=== PATIENT | male | born 2000 | race African-American/Black ===

== ENCOUNTER 2019-03-16 02:36 | Emergency (ER) | payer MEDICAID ==
[~2019-03-16] VITALS: Ht 182.9 cm; Wt 76.2 kg
[2019-03-16] MEDS ORDERED: SODIUM CHLORIDE 0.9% 1,000 ML IV ONE (02:55)
[2019-03-16] MEDS ORDERED: ONDANSETRON HCL 4 MG/2 ML VIAL IV ONE (03:00)
[2019-03-16] MEDS ORDERED: HYDROmorphone HCL 2 MG/ML VL IV ONE ×2 (03:00→06:30)
[2019-03-16 04:09] LABS: Basophils # (auto) 0.2 uL; Basophils % (auto) 1.4 % (0.0-2.0); Eosinophils # (auto) 0.5 uL; Eosinophils % (auto) 3.3 % (0.0-7.0); Hematocrit 18.1 % (41.0-53.0); Lymphocytes % (auto) 20.1 % (10.0-50.0); Mean Corpuscular Hemoglobin 34.4 pg (28.0-32.0); Mean Corpuscular Hgb Conc. 36.5 g/dL (32.0-36.0); Mean Corpuscular Volume 94.2 fL (80.0-100.0); Monocytes # (auto) 1.6 uL; Monocytes % (auto) 10.8 % (0.0-12.0); Neutrophils # (auto) 9.7 uL; Neutrophils % (auto) 64.4 % (37.0-80.0); Nucleated Red Blood Cells % 1.2 %; Platelet Count (auto) 233 10^3/uL (140-450); Red Blood Cells 1.92 10^6/uL (4.5-5.90); White Blood Cell 15.1 10^3/uL (4.4-10.8)
[2019-03-16 04:11] LABS: Hemoglobin 6.6 g/dL (13.5-17.5); Red Cell Distribution Width 29.7 % (11.8-14.3)
[2019-03-16 04:22] LABS: Albumin 3.9 g/dL (3.4-5.0); Calcium 8.6 mg/dL (8.5-10.1); Potassium 3.8 mmol/L (3.5-5.1)
[2019-03-16 04:26] LABS: BUN/Creatinine Ratio 14.1
[2019-03-16 04:32] LABS: Bilirubin, Total 6.6 mg/dL (0.2-1.0); Total Protein 7.6 g/dL (6.4-8.2)
[2019-03-16 08:53] VITALS: BP 117/73
== END 2019-03-16 09:08 | disposition short-term general hospital (02) ==
LOC: EDBD 02:36 → ER 02:36
DX: D57.00 Hb-SS disease with crisis, unspecified (principal)
CPT/HCPCS: 36415; 71045; 80053; 85025; 85045; 93005; 96374; 96375; 96376; 99285; J1170; J2405; J7030

== ENCOUNTER 2019-04-14 17:57 | Emergency (ER) | payer MEDICAID ==
[~2019-04-14] VITALS: Ht 200.7 cm; Wt 83.0 kg
[2019-04-14 18:23] VITALS: BP 118/64
[2019-04-14] MEDS ORDERED: IBUPROFEN 600 MG TAB PO ONE (18:30)
[2019-04-15] MEDS ORDERED: FOLI1TAB6 PO (16:22)
[2019-04-16] MEDS ORDERED: HYDR-4798 PO (00:36)
[2019-04-16] MEDS ORDERED: GLUT5POW PO (00:36)
== END 2019-04-14 22:28 | disposition left against medical advice (07) ==
LOC: ER 18:03
DX: R52 Pain, unspecified (principal); Z53.21 Procedure and treatment not carried out due to patient leaving prior to being seen by health care provider

== ENCOUNTER 2022-08-06 19:10 | Inpatient (IN) | payer MEDICAID ==
[~2022-08-06] VITALS: Ht 203.2 cm; Wt 77.3 kg
[~2022-08-06 19:10] MED LIST: FOLI1TAB6 PO; GLUT5POW PO; HYDR-4798 PO
[2022-08-06] MEDS ORDERED: methylPREDNISolone SOD SUCC 125 MG/2 ML VL IV ONE (19:30)
[2022-08-06] MEDS ORDERED: IPRATROPIUM BROM 0.5 MG/2.5ML INH SOL HHN ONE (19:30)
[2022-08-06] MEDS ORDERED: ALBUTEROL SULF 2.5 MG/0.5ML(0.5%) NEB SOLN HHN ONE (19:30)
[2022-08-06] MEDS ORDERED: TEMAZEPAM 15 MG CAP PO PRN (21:30)
[2022-08-06] MEDS ORDERED: ACETAMINOPHEN 325 MG TAB PO PRN (21:30)
[2022-08-06] MEDS ORDERED: NITROGLYCERIN 0.4 MG SL TAB SL PRN (21:30)
[2022-08-06] MEDS ORDERED: MORPHINE SULFATE INJ 2 MG/ml SYRG IV PRN (21:30)
[2022-08-06] MEDS ORDERED: ONDANSETRON HCL 4 MG/2 ML VIAL IV PRN (21:30)
[2022-08-06] MEDS ORDERED: HYDROcodone-ACET 5/325MG TAB PO PRN (21:30)
[2022-08-06 21:37] VITALS: BP 130/68
[2022-08-06 22:47] LABS: Albumin 4.2 g/dL (3.4-5.0); Calcium 8.5 mg/dL (8.5-10.1); Potassium 3.5 mmol/L (3.5-5.1)
[2022-08-06 22:50] LABS: BUN/Creatinine Ratio 9.9; Bilirubin, Total 8.1 mg/dL (0.2-1.0); Total Protein 8.4 g/dL (6.4-8.2)
[2022-08-06 22:54] LABS: Lymphocytes % (auto) 7.2 % (10.0-50.0); Neutrophils % (auto) 88.3 % (37.0-80.0); White Blood Cell 17.8 10^3/uL (4.4-10.8)
[2022-08-06 22:55] LABS: Basophils # (auto) 0.2 10 ^3/uL (0-0.2); Basophils % (auto) 1.3 % (0.0-2.0); Eosinophils # (auto) 0 10 ^3/uL (0-0.8); Eosinophils % (auto) 0.2 % (0.0-7.0); Lymphocytes # (auto) 1.3 10 ^3/uL (0.4-5.4); Mean Corpuscular Hemoglobin 32.8 pg (28.0-32.0); Mean Corpuscular Hgb Conc. 36.3 g/dL (32.0-36.0); Mean Corpuscular Volume 90.3 fL (80.0-100.0); Monocytes # (auto) 0.5 10 ^3/uL (0-1.3); Neutrophils # (auto) 15.7 10 ^3/uL (1.6-8.6); Nucleated Red Blood Cells % 0.8 %; Red Blood Cells 2.11 10^6/uL (4.5-5.90)
[2022-08-06 22:56] LABS: Red Cell Distribution Width 27.4 % (11.8-14.3)
[2022-08-06 23:01] LABS: Hemoglobin 6.9 g/dL (13.5-17.5)
[2022-08-07] MEDS ORDERED: IPRATROPIUM BROM 0.5 MG/2.5ML INH SOL NEB SCH (06:00)
[2022-08-07] MEDS ORDERED: ALBUTEROL SULF 2.5 MG/0.5ML(0.5%) NEB SOLN NEB SCH (06:00)
[2022-08-07] MEDS ORDERED: FOLIC ACID 1 MG TAB PO SCH (10:00)
[2022-08-07] MEDS ORDERED: methylPREDNISolone SOD SUCC 125 MG/2 ML VL IV SCH (10:00)
[2022-08-07] MEDS ORDERED: hydroxyUREA 500 MG CAP PO SCH (10:00)
[2022-08-07] MEDS ORDERED: PANTOPRAZOLE 40 MG TAB PO SCH (10:00)
== END 2022-08-06 22:23 | disposition left against medical advice (07) | DRG 141 ==
LOC: ER 19:10 → EDBD 19:10 → TELE 21:34
PROVIDERS: ADMIT Nurse Practitioner; ATTEND Nurse Practitioner
DX: J45.902 Unspecified asthma with status asthmaticus (principal); J96.21 Acute and chronic respiratory failure with hypoxia; D57.1 Sickle-cell disease without crisis; Z53.29 Procedure and treatment not carried out because of patient's decision for other reasons; Z83.2 Family history of diseases of the blood and blood-forming organs and certain disorders involving the immune mechanism; Z94.9 Transplanted organ and tissue status, unspecified; Z20.822 Contact with and (suspected) exposure to COVID-19
CPT/HCPCS: 36415; 71045; 80053; 83605; 85025; 85045; 85379; 87040; 94640; 96374; G0378

== ENCOUNTER 2022-08-09 14:16 | Inpatient (IN) | payer MEDICAID ==
[~2022-08-09] VITALS: Ht 203.2 cm; Wt 75.0 kg
[2022-08-09] MEDS ORDERED: MAGNESIUM SULFATE 1GM/100ML 100 ML IV ONE (14:45)
[2022-08-09] MEDS ORDERED: DexAMETHasone SOD PHOS 10MG/1ML VIAL INJ IV ONE (14:45)
[2022-08-09] MEDS ORDERED: ALBUTEROL SULF 2.5 MG/0.5ML(0.5%) NEB SOLN NEB ONE (14:45)
[2022-08-09] MEDS ORDERED: IPRATROPIUM BROM 0.5 MG/2.5ML INH SOL NEB ONE (14:45)
[2022-08-09] MEDS ORDERED: CEFEPIME 1GM/ 50ML 50 ML IV ONE (16:00)
[2022-08-09] MEDS ORDERED: VANCOMYCIN 1GM/250ML 250 ML IV ONE (16:00)
[2022-08-09 16:33] LABS: Eosinophils # (auto) 0.3 10 ^3/uL (0-0.8); Mean Corpuscular Hemoglobin 33.4 pg (28.0-32.0)
[2022-08-09 16:35] LABS: Basophils # (auto) 0.1 10 ^3/uL (0-0.2); Basophils % (auto) 0.9 % (0.0-2.0); Eosinophils % (auto) 2.1 % (0.0-7.0); Hematocrit 17.6 % (41.0-53.0); Lymphocytes % (auto) 27.3 % (10.0-50.0); Mean Corpuscular Hgb Conc. 36.1 g/dL (32.0-36.0); Mean Corpuscular Volume 92.6 fL (80.0-100.0); Monocytes # (auto) 1.5 10 ^3/uL (0-1.3); Monocytes % (auto) 10.3 % (0.0-12.0); Neutrophils # (auto) 8.7 10 ^3/uL (1.6-8.6); Neutrophils % (auto) 59.4 % (37.0-80.0); Nucleated Red Blood Cells % 2.8 %; White Blood Cell 14.7 10^3/uL (4.4-10.8)
[2022-08-09 16:37] LABS: INR 1.13 (0.9-1.15); Partial Thromboplastin Time 30.2 sec (24.6-33.4)
[2022-08-09 16:38] LABS: Albumin 4.1 g/dL (3.4-5.0); BUN/Creatinine Ratio 12.6; Calcium 8.2 mg/dL (8.5-10.1)
[2022-08-09 16:41] LABS: Bilirubin, Total 11.5 mg/dL (0.2-1.0)
[2022-08-09 16:48] LABS: Hemoglobin 6.4 g/dL (13.5-17.5); Red Cell Distribution Width 28.4 % (11.8-14.3)
[2022-08-09] MEDS ORDERED: DOCUSATE SOD 100 MG CAP PO PRN (19:45)
[2022-08-09] MEDS ORDERED: SODIUM CHLORIDE 0.9% 1,000 ML IV SCH (19:45)
[2022-08-09] MEDS ORDERED: ACETAMINOPHEN 325 MG TAB PO PRN (19:45)
[2022-08-09] MEDS ORDERED: HYDROcodone-ACET 5/325MG TAB PO PRN (19:45)
[2022-08-09] MEDS ORDERED: PANTOPRAZOLE 40 MG/10 ML VIAL INJ IV ONE (19:45)
[2022-08-09] MEDS ORDERED: MORPHINE SULFATE INJ 2 MG/ml SYRG IV PRN (19:45)
[2022-08-09] MEDS ORDERED: ONDANSETRON HCL 4 MG/2 ML VIAL IV PRN (19:45)
[2022-08-09] MEDS ORDERED: diphenhdrAMINE HCL 50 MG/1 ML VL IV ONE (20:30)
[2022-08-09] MEDS ORDERED: IPRATROPIUM BROM 0.5 MG/2.5ML INH SOL NEB SCH (22:00)
[2022-08-09] MEDS ORDERED: CEFEPIME 1GM/ 50ML 50 ML IV SCH (22:00)
[2022-08-09] MEDS ORDERED: ALBUTEROL SULF 2.5 MG/0.5ML(0.5%) NEB SOLN NEB SCH (22:00)
[2022-08-10 02:27] VITALS: BP 123/59
[2022-08-10 03:20] VITALS: BP 123/51
[2022-08-10] MEDS ORDERED: levoFLOXacin 500MG 100 ML IV SCH (09:00)
[2022-08-10] MEDS ORDERED: PANTOPRAZOLE 40 MG/10 ML VIAL INJ IV SCH (10:00)
== END 2022-08-10 03:20 | disposition left against medical advice (07) | DRG 662 ==
LOC: ER 14:18 → UNDOADMIN 19:54 → TELE 19:54 → ICU CENTRL 23:58 → ER 08-10 03:28
PROVIDERS: ADMIT Nurse Practitioner Family; ATTEND Nurse Practitioner Family
DX: D57.01 Hb-SS disease with acute chest syndrome (principal); J96.01 Acute respiratory failure with hypoxia; J18.9 Pneumonia, unspecified organism; D72.829 Elevated white blood cell count, unspecified; D57.3 Sickle-cell trait; Z53.29 Procedure and treatment not carried out because of patient's decision for other reasons; J45.909 Unspecified asthma, uncomplicated; Z20.822 Contact with and (suspected) exposure to COVID-19; Z90.49 Acquired absence of other specified parts of digestive tract
CPT/HCPCS: 36415; 36600; 71045; 80053; 82805; 83605; 83880; 84484; 85025; 85045; 85610; 85730; 86850; 86870; 86900; 86901; 86922; 93005; 94640; 96365; 96366; 96368; 96375; 99291; C9113; G0378; J1100

== ENCOUNTER 2024-09-17 10:17 | Inpatient (IN) | payer MEDICAID ==
[2024-09-17] VITALS (7 sets, daily range): BP systolic 104–123; BP diastolic 50–62; PULSE 46–72; RESP 17–26; TEMP 98.4–98.6; O2SAT 94–99
[~2024-09-17] VITALS: Ht 203.2 cm; Wt 71.1 kg
[~2024-09-17 10:17] MED LIST changes: +FOLI-119 PO; -FOLI1TAB6 PO
--- NOTE | 2024-09-17 11:01 | ED.PDOC ---
SOB-HPI HPI Comments 23 y.o male with PMH Of sickle cell anemia and asthma, presents to the ED via EMS for a chief complaint of SOB associated with body pain and generalized weakness that started a couple days ago. Patient reports sudden onset of symptoms without recent contact illness exposure. EMS reports patient was saturating at 88% on room air on scene, was given one breathing treatment and placed on 2 liters of oxygen, increasing saturation the high 90's. Upon ED arriv al, EMS took patient off oxygen and he immediately dropped down to 88% again. Oxygen placed back on. Patient reports last sickle cell flare up was 2 years ago. No other symptoms or pain reported. He denies any tobacco or alcohol use. Marijuana use occasionally. Chief Complaint: Shortness of Breath Time Seen by MD: 10:36 Primary Care Provider: AME Reviewed notes: Nurses Notes, Refrigeration Manager Notes, Medications, Allergies Information Source: Patient, Emergency Med Personnel Mode of Arrival: EMS Severity: Moderate Timing: Days Duration: Since onset Context: At Rest PE Risk Factors: None History of: None Prehospital treatment: Breathing Tx, Oxygen (2 liters ) Associated Signs and Symptoms: Other Past Medical History PAST MEDICAL HISTORY: Anemia, Asthma Surgical History: Cholecystectomy Family History Family History: Unknown Social History Smoker: Non-Smoker Alcohol: Denies ETOH Use Drugs: Marijuana Lives In: Home Constitutional: reports: weakness; denies: chills, diaphoresis, fatigue, fever, malaise, sweats, others EENTM: denies: blurred vision, double vision, ear bleeding, ear discharge, ear drainage, ear pain, ear ringing, eye pain, eye redness, hearing loss, mouth pain, mouth swelling, nasal discharge, nose bleeding, nose congestion, nose pain, photophobia, tearing, throat pain, throat swelling, voice changes, others Respiratory: reports: SOB at rest, shortness of breath, SOB with excertion; denies: cough, hemoptysis, orthopnea, stridor, wheezing, others Cardiovascular: denies: chest pain, dizzy spells, diaphoresis, Dyspnea on exertion, edema, irregular heart beat, left arm pain, lightheadedness, palpitations, PND, syncope, others Gastrointestinal: denies: abdomen distended, abdominal pain, blood streaked bowels, constipated, diarrhea, dysphagia, difficulty swallowing, hematemesis, melena, nausea, poor appetite, poor fluid intake, rectal bleeding, rectal pain, vomiting, others Genitourinary: denies: burning, dysuria, flank pain, frequency, hematuria, incontinence, penile discharge, penile sore, pain, testicle pain, testicle swelling, urgency, others Neurological: denies: dizziness, fainting, headache, left sided numbness, left sided weakness, numbness, paresthesia, pre-existing deficit, right sided numbness, right sided weakness, seizure, speech problems, tingling, tremors, weakness, others Musculoskeletal: reports: muscle pain; denies: back pain, gout, joint pain, joint swelling, muscle stiffness, neck pain, others Integumetry: denies: bruises, change in color, change in hair/nails, dryness, laceration, lesions, lumps, rash, wounds, others Allergic/Immunocompromised: denies: Difficulty Healing, Frequent Infections, Hives, Itching, others Hematologic/Lymphatic: denies: anemia, blood clots, easy bleeding, easy bruising, swollen glands, others Endocrine: denies: excessive hunger, excessive sweating, excessive thirst, excessive urination, flushing, intolerance to cold, intolerance to heat, unexplained weight gain, unexplained weight loss, others Psychiatric: denies: anxiety, bipolar disorder, depression, hopeless, panic disorder, schizophrenia, sleepless, suicidal, others All Other Systems: Reviewed and Negative Physical Exam General Appearance: Thin HEENT: Pale Conjuntivae (L), Pale Conjuntivae (R), Pharynx Normal, TMs Normal Neck: Full Range of Motion, Non-Tender, Normal, Normal Inspection Respiratory: Chest Non-Tender, Decreased Breath Sounds, No Accessory Muscle Use, No Respiratory Distress, Wheezing Cardiovascular: No Edema, No JVD, No Murmur, No Gallop, Normal Peripheral Pulses, Regular Rate/Rhythm Breast Exam: Deferred Gastrointestinal: No Organomegaly, Non Tender, No Pulsatile Mass, Normal Bowel Sounds, Soft Genitalia: Deferred Pelvic: Deferred Rectal: Deferred Extremities: No calf tenderness, Normal capillary refill, No pedal edema Musculoskeletal : Apperance: Normal Neurologic: Alert, marine fisheries technician II-XII nml as Tested, No Motor Deficits, Normal Affect, Normal Mood, No Sensory Deficits Cerebellar Function: Normal Reflexes: Normal Skin: Dry, Normal Color, Warm Lymphatic: No Adenopathy Was a procedure done? Was a procedure done?: No Differential Dx Differential Diagnosis: Asthma, Bronchitis, Pneumonia, Respiratory Distress, URI Comments Sickle cell crisis X-Ray, Labs, Meds, VS Vital Signs Date Time Temp Pulse Resp B/P (MAP) Pulse Ox O2 Delivery O2 Flow Rate FiO2 09/17/24 11:30 62 26 130/59 09/17/24 10:54 98.4 62 26 126/36 (66) 94 98.4 09/17/24 10:54 62 26 94 Nasal Cannula* 3 32 09/17/24 10:53 98.7 72 18 108/63 (78) 100 Lab Test 09/17/24 11:11 Range/Units White Blood Count 13.6 H 4.4-10.8 10^3/uL Red Blood Count 1.99 L 4.5-5.90 10^6/uL Hemoglobin 6.6 *L 13.5-17.5 g/dL Hematocrit 17.9 L 41.0-53.0 % Mean Corpuscular Volume 89.9 80.0-100.0 fL Mean Corpuscular Hemoglobin 33.3 H 28.0-32.0 pg Mean Corpuscular Hemoglobin Concent 37.1 H 32.0-36.0 g/dL Red Cell Distribution Width 26.9 H 11.8-14.3 % Platelet Count 212 140-450 10^3/uL Mean Platelet Volume 8.0 6.9-10.8 fL Neutrophils (%) (Auto) 37.0-80.0 % Lymphocytes (%) (Auto) 10.0-50.0 % Monocytes (%) (Auto) 0.0-12.0 % Basophils (%) (Auto) 0.0-2.0 % Neutrophils # (Auto) 1.6-8.6 10 ^3/uL Lymphocytes # (Auto) 0.4-5.4 10 ^3/uL Monocytes # (Auto) 0-1.3 10 ^3/uL Differential Total Cells Counted 100.0 100 Neutrophils % (Manual) 72 37.0-80.0 Band Neutrophils % (Manual) 2 Lymphocytes % (Manual) 21 10.0-50.0 Monocytes % (Manual) 5 0-12 Eosinophils % (Manual) 0 0-7 Basophils % (Manual) 0 0.0-2.0 Metamyelocytes % (manual) 0 Myelocytes % (Manual) 0 Promyelocytes % (Manual) 0 Blast Cells % (Manual) 0 Reactive Lymphocytes 0 Platelet Estimate Adequate Anisocytosis (manual) Marked Sickle Cells Many Reticulocyte Count (auto) 11.64 H 0.5-1.5 % Sodium Level 138 136-145 mmol/L Potassium Level 4.3 3.5-5.1 mmol/L Chloride Level 109 H 98-107 mmol/L Carbon Dioxide Level 25 20-31 mmol/L Anion Gap 4 L 5-15 Blood Urea Nitrogen 13 9-23 mg/dL Creatinine 0.93 0.700-1.30 mg/dL Glomerular Filtration Rate Calc 117 >90 mL/min BUN/Creatinine Ratio 14.0 10.0-20.0 Serum Glucose 95 74-106 mg/dL Calcium Level 8.9 8.7-10.4 mg/dL Current Medications Medications (Trade) Dose Ordered Sig/Mirza Route Start Time Stop Time Status Last Admin Hydromorphone HCl (Dilaudid Injection) 1 mg ONCE ONCE IV 09/17/24 11:00 09/17/24 11:01 DC 09/17/24 11:30 Sodium Chloride 1,000 ml @ 1,000 mls/hr Q1H ONCE IV 09/17/24 11:00 09/17/24 11:59 DC 09/17/24 11:27 Ondansetron HCl (Zofran) 4 mg ONCE ONCE IV 09/17/24 11:00 09/17/24 11:01 DC 09/17/24 11:27 CHEST RADIOGRAPH IMPRESSION: Cardiomegaly Mild congestion The CBC shows an elevated white blood cell count of 13.6. The rest of the CBC shows significant anemia with a hemoglobin of 6.6 and hematocrit of 17.9 The chemistry panel is within normal limits The reticulocyte count is significantly elevated at 11.64 For the pain, the patient was given Dilaudid 1 mg IV push The patient was also given Zofran 4 mg IV push The patient was given a 1 L bolus of normal saline. At this time, the patient was being admitted with a diagnosis of severe anemia as well as exacerbation of sickle cell disease or sickle cell crisis We have discussed the findings with the patient and they are in agreement with the management. The patient was being admitted at this time. Images Reviewed?: Images reviewed and evaluated by me Time of 1ST Reevaluation: 10:57 Reevaluation 1ST: Unchanged Patient Education/Counseling: Diagnosis, Treatment, Prognosis Family Education/Counseling: No Family Present Departure 1 Departure Time of Disposition: 12:36 Impression: Primary Impression: Acute chest syndrome due to sickle cell crisis Additional Impressions: Asthma exacerbation Qualified Codes: J45.901 - Unspecified asthma with (acute) exacerbation Severe anemia Disposition: ADMITTED INPATIENT Admit to: Tele Condition: Fair Critical Care Note Critical Care Time?: Yes (45 min-critical care time only) Stability Stability form required: Yes Unstable for transfer: Telemetry monitoring (Telemetry monitoring required), ED Physician Assesment (Clinical assesment) I personally scribed for CRISTO RIVERA MD ([email or web address]) on 09/17/24 at 11:01. Electronically submitted by Sarita Stringer ([facility]). I personally scribed for CRISTO RIVERA MD ([email or web address]) on 09/17/24 at 11:36. Electronically submitted by Sarita Stringer ([facility]). CRISTO RIVERA MD Sep 17, 2024 11:01
[2024-09-17] MEDS: SODIUM CHLORIDE 0.9% 1,000 ML IV ONE ×2 (11:27→14:16)
[2024-09-17] MEDS: ONDANSETRON HCL 4 MG/2 ML VIAL IV ONE (11:27)
--- NOTE | 2024-09-17 11:27 | DVH ---
CHEST RADIOGRAPH Indication:sob Technique: Single frontal view of the chest was obtained COMPARISON: CHEST PORTABLE on DOS: 08/09/22, CXRP on DOS: 08/09/22, CHEST PORTABLE on DOS: 08/06/22 FINDINGS: Lines and Tubes: None Lungs: Pulmonary vascular congestion Pleura: No effusion. No pneumothorax. Cardiomediastinal contours: Cardiomegaly Bones: Unremarkable IMPRESSION: Cardiomegaly Mild congestion
[2024-09-17] MEDS: HYDROmorphone HCL 2 MG/ML VL/or syr IV ONE (11:30)
[2024-09-17 11:41] LABS: Chloride 109 mmol/L (98-107); Potassium 4.3 mmol/L (3.5-5.1); Sodium 138 mmol/L (136-145)
[2024-09-17 11:42] LABS: Anion Gap 4 (5-15); Calcium 8.9 mg/dL (8.7-10.4); Carbon Dioxide 25 mmol/L (20-31)
[2024-09-17 11:47] LABS: Glucose 95 mg/dL (74-106)
[2024-09-17 11:48] LABS: Blood Urea Nitrogen 13 mg/dL (9-23)
[2024-09-17 11:50] LABS: Hematocrit 17.9 % (41.0-53.0); Mean Corpuscular Hemoglobin 33.3 pg (28.0-32.0); Mean Corpuscular Volume 89.9 fL (80.0-100.0); Platelet Count (auto) 212 10^3/uL (140-450); Red Blood Cells 1.99 10^6/uL (4.5-5.90); White Blood Cell 13.6 10^3/uL (4.4-10.8)
[2024-09-17 11:52] LABS: Mean Corpuscular Hgb Conc. 37.1 g/dL (32.0-36.0); Red Cell Distribution Width 26.9 % (11.8-14.3)
[2024-09-17 11:54] LABS: Hemoglobin 6.6 g/dL (13.5-17.5)
[2024-09-17 11:56] LABS: Basophils % (manual) 0 (0.0-2.0); Blast Cells 0; Eosinophils % (manual) 0 (0-7); Metamyelocytes % 0; Myelocytes % 0; Promyelocytes % 0; Reactive Lymphocytes 0
[2024-09-17 12:28] LABS: Anisocytosis Marked; Band Neutrophils % (manual) 2; Lymphocytes % (manual) 21 (10.0-50.0); Monocytes % (manual) 5 (0-12); Platelet Estimate Adequate; Sickle Cells MANY
[2024-09-17] MEDS ORDERED: ACETAMINOPHEN 500 MG TAB PO PRN (13:45)
[2024-09-17] MEDS ORDERED: NITROGLYCERIN 0.4 MG SL TAB SL PRN (13:45)
[2024-09-17] MEDS ORDERED: HYDROcodone-ACET 5/325MG TAB PO PRN (13:45)
--- NOTE | 2024-09-17 14:32 | DVHHP2 ---
History of Present Illness Reason for Visit: Shortness of breaths History of Present Illness The patient was a 23-year-old male presenting to the emergency room with acute shortness of breath that has been worsening over the past two days. Patient also reports having generalized body aches, denies having any fevers or chills, but does report having green sputum production. The patient has a significant history of sickle cell disease, and states he has not been hospitalized for several years. During in my assessment, he was noted to be bradycardic with a heart rate in the 40s. The patient reports that he was very active with respect to physical activity, and states that he was had cardiac workup including an MRI of his heart and has not been told of any cardiac disease. Patient was found to have abnormal labs including a hemoglobin of 6.6 , white blood cell count of 13.6 and elevated reticulocyte count of 11.6. Heme/Onc: Sickle cell disease Past Surgical History: None Smoke: No ALCOHOL: none Drugs: None Lives: with Family Domestic Violence: Neg Review of Systems Constitutional: Yes: Weakness, Malaise Eyes: No: Pain, Vision change, Conjunctivae inflammation, Eyelid inflammation, Other, Redness ENT: No: Ear pain, Ear discharge, Nose pain, Nose discharge, Nose congestion, Mouth pain, Mouth swelling, Throat pain, Throat swelling, Other Respiratory: Cough, Shortness of breath, Sputum Cardiovascular: No: Chest Pain, Palpitations, Orthopnea, Paroxysmal Noc. Dyspnea, Edema, Lt Headedness, Other Gastrointestinal: No: Nausea, Vomiting, Abdominal Pain, Diarrhea, Constipation, Melena, Hematochezia, Other Genitourinary: No Dysuria, No Frequency, No Incontinence, No Hematuria, No Retention, No Other Musculoskeletal: No: other, neck pain, shoulder pain, arm pain, back pain, hand pain, leg pain, foot pain Skin: No: Rash, Lesions, Jaundice, Bruising, Other Neurological: No: Weakness, Numbness, Incoordination, Change in speech, Confusion, Seizures, Other Allergies: Coded Allergies: NO KNOWN ALLERGIES (Unverified , 11/03/15) Medications Current Medications Medications Dose Ordered Sig/Mirza Route Start Time Stop Time Status Last Admin Dose Admin Nitroglycerin 0.4 mg Q5MINP PRN SL 09/17/24 13:45 Morphine Sulfate 2 mg Q30M PRN IV 09/17/24 13:45 Ceftriaxone Sodium 50 ml @ 100 mls/hr DAILY@0900 IV 09/18/24 09:00 Azithromycin 250 ml @ 125 mls/hr DAILY IV 09/18/24 10:00 Acetaminophen 500 mg Q8HP PRN PO 09/17/24 13:45 Acetaminophen/ Hydrocodone Bitart 1 tab Q6HPRN PRN PO 09/17/24 13:45 Multivitamins 1 tab DAILY PO 09/18/24 10:00 Exam Vital Signs Vital Signs Date Time Temp Pulse Resp B/P (MAP) Pulse Ox O2 Delivery O2 Flow Rate FiO2 09/17/24 11:30 62 26 130/59 09/17/24 10:54 98.4 94 98.4 09/17/24 10:54 Nasal Cannula* 3 32 General Appearance: Alert, Oriented X3, Cooperative, mild distress HEENT: Atraumatic, PERRLA Respiratory: Clear to auscultation, Normal air movement Cardiovascular: Normal S1, Normal S2, Other (Sinus bradycardia) Abdominal: Normal bowel sounds Extremities: No clubbing, No cyanosis Neuro: Normal gait, Normal speech, Strength at 5/5 X4 ext Psych/Mental Status: Mental status NL, Mood NL Labs/Xrays Labs Test 09/17/24 11:11 Range/Units White Blood Count 13.6 H 4.4-10.8 10^3/uL Red Blood Count 1.99 L 4.5-5.90 10^6/uL Hemoglobin 6.6 *L 13.5-17.5 g/dL Hematocrit 17.9 L 41.0-53.0 % Mean Corpuscular Volume 89.9 80.0-100.0 fL Mean Corpuscular Hemoglobin 33.3 H 28.0-32.0 pg Mean Corpuscular Hemoglobin Concent 37.1 H 32.0-36.0 g/dL Red Cell Distribution Width 26.9 H 11.8-14.3 % Platelet Count 212 140-450 10^3/uL Mean Platelet Volume 8.0 6.9-10.8 fL Neutrophils (%) (Auto) 37.0-80.0 % Lymphocytes (%) (Auto) 10.0-50.0 % Monocytes (%) (Auto) 0.0-12.0 % Basophils (%) (Auto) 0.0-2.0 % Neutrophils # (Auto) 1.6-8.6 10 ^3/uL Lymphocytes # (Auto) 0.4-5.4 10 ^3/uL Monocytes # (Auto) 0-1.3 10 ^3/uL Differential Total Cells Counted 100.0 100 Neutrophils % (Manual) 72 37.0-80.0 Band Neutrophils % (Manual) 2 Lymphocytes % (Manual) 21 10.0-50.0 Monocytes % (Manual) 5 0-12 Eosinophils % (Manual) 0 0-7 Basophils % (Manual) 0 0.0-2.0 Metamyelocytes % (manual) 0 Myelocytes % (Manual) 0 Promyelocytes % (Manual) 0 Blast Cells % (Manual) 0 Reactive Lymphocytes 0 Platelet Estimate Adequate Anisocytosis (manual) Marked Sickle Cells Many Reticulocyte Count (auto) 11.64 H 0.5-1.5 % Sodium Level 138 136-145 mmol/L Potassium Level 4.3 3.5-5.1 mmol/L Chloride Level 109 H 98-107 mmol/L Carbon Dioxide Level 25 20-31 mmol/L Anion Gap 4 L 5-15 Blood Urea Nitrogen 13 9-23 mg/dL Creatinine 0.93 0.700-1.30 mg/dL Glomerular Filtration Rate Calc 117 >90 mL/min BUN/Creatinine Ratio 14.0 10.0-20.0 Serum Glucose 95 74-106 mg/dL Calcium Level 8.9 8.7-10.4 mg/dL Assessment/Plan Assessment/Plan Impression: -acute hypoxic respiratory failure -leukocytosis, rule out sepsis -sickle cell crisis -sinus bradycardia -anemia Plan: -admit to telemetry unit -O2 supplementation to keep saturation greater than 92% -checking BNP -PRBC transfusion -EKG -antibiotic therapy: Rocephin, azithromycin -check influenza and COVID-19 -pain management -repeat labs, chest x-ray in a.m. Total time spent with patient discussing and formulating plan of care: 35 minutes. This medical document was created using an electronic medical record system with [employer] dictation system. Although this document has been carefully reviewed, there may still be some phonetic and typographical errors. These areas are purely typographical due to imperfections of the software programs, and do not reflect any compromise in the patient's medical care. Plan discussed with: Patient, Other (RN) My Orders Orders - CHRISTIAN SHETTY NP Procedure Category Date Status Time Admit ADMIT 09/17/24 Transmitted 13:37 Nitroglycerin PHA 09/17/24 In Process Sublingual (Ntrostat 13:45 Morphine Sulfate PHA 09/17/24 In Process Injection 13:45 Stat Ekg For Chest ANDREI 09/17/24 In Process Pain 13:37 Notify Md Of Changes ANDREI 09/17/24 In Process From Base 13:37 Print And Pattern Designer For ANDREI 09/17/24 In Process 24 Hours 13:37 Emergency Dysrhythmia ANDREI 09/17/24 In Process Protocol 13:37 Rhythm Strips Once ANDREI 09/17/24 In Process Every Shift 13:37 Oxygen By Nasal RT 09/17/24 Transmitted Cannula 13:37 Complete Blood Count LAB 09/18/24 Verified 04:00 B-Type Natriuretic LAB 09/17/24 Logged Peptide 13:37 Chest Portable XY 09/18/24 Logged 04:00 Ceftriaxone 1gm/50ml PHA 09/18/24 In Process D5w (Rocephin) 09:00 Azithromycin 500mg/ PHA 09/18/24 In Process 250ml (Zithromax 50 10:00 Respiratory Culture JO 09/17/24 Logged W/ Gs 13:37 Acetaminophen Tablet PHA 09/17/24 In Process (Tylenol Tablet) 13:45 Hydrocodone-Acet PHA 09/17/24 In Process 5/325mg Tab ([place] 13:45 Rapid Influenza A&B LAB 09/17/24 Logged 13:37 Sequential ANDREI 09/17/24 In Process Compression Device 13:37 Dvh Inhouse Covid19 JO 09/17/24 Logged 13:37 Sodium Chloride 0.9% PHA 09/17/24 In Process 13:45 Regular Diet DIET 09/17/24 Transmitted Dinner D-Dimer LAB 09/17/24 Logged 13:37 Multiple Vitamin PHA 09/18/24 In Process Tablet (Mvi Tab) 10:00 Date of Service: Sep 17, 2024 Billing Provider: CHRISTIAN SHETTY NP Common Visit Codes: [id number] INP/OBS CARE (HIGH) CHRISTIAN SHETTY NP Sep 17, 2024 14:32
[2024-09-17] MEDS ORDERED: ONDANSETRON HCL 4 MG/2 ML VIAL IV PRN (14:45)
[2024-09-17 15:52] LABS: COVID19 ANTIGEN SOFIA FIA NEGATIVE (NEGATIVE); Rapid Influenza A Negative (Negative); Rapid Influenza B Negative (Negative)
[2024-09-17] MEDS: MORPHINE SULFATE INJ 2 MG/ml SYRG IV PRN (20:10)
[2024-09-18] VITALS (16 sets, daily range): BP systolic 106–124; BP diastolic 42–64; PULSE 50–91; RESP 16–98; TEMP 98.2–101; O2SAT 18–100
[2024-09-18] MEDS: SODIUM CHLORIDE 0.9% 1,000 ML IV SCH
--- NOTE | 2024-09-18 05:45 | DVH ---
CHEST RADIOGRAPH Indication:pna Technique: Single frontal view of the chest was obtained COMPARISON: XY CHEST PORTABLE on DOS: 09/17/24, CHEST PORTABLE on DOS: 08/09/22, CXRP on DOS: 08/09/22 FINDINGS: Lines and Tubes: None Lungs: Multifocal airspace disease. Pleura: No effusion. No pneumothorax. Cardiomediastinal contours: Cardiomegaly Bones: Unremarkable IMPRESSION: Multifocal airspace disease.
[2024-09-18] MEDS: ACETAMINOPHEN 500 MG TAB PO PRN (06:07)
[2024-09-18 08:06] LABS: Basophils # (auto) 0.2 10 ^3/uL (0-0.2); Basophils % (auto) 1.2 % (0.0-2.0); Eosinophils # (auto) 0 10 ^3/uL (0-0.8); Eosinophils % (auto) 0.1 % (0.0-7.0); Hematocrit 15.3 % (41.0-53.0); Lymphocytes % (auto) 12.3 % (10.0-50.0); Mean Corpuscular Hemoglobin 32.7 pg (28.0-32.0); Mean Corpuscular Hgb Conc. 36.3 g/dL (32.0-36.0); Mean Corpuscular Volume 90.3 fL (80.0-100.0); Monocytes # (auto) 1.5 10 ^3/uL (0-1.3); Monocytes % (auto) 9.2 % (0.0-12.0); Neutrophils # (auto) 12.6 10 ^3/uL (1.6-8.6); Neutrophils % (auto) 77.2 % (37.0-80.0); Nucleated Red Blood Cells % 0.6 %; Platelet Count (auto) 207 10^3/uL (140-450); Red Cell Distribution Width 26.7 % (11.8-14.3); White Blood Cell 16.3 10^3/uL (4.4-10.8)
[2024-09-18 08:07] LABS: Hemoglobin 5.6 g/dL (13.5-17.5)
[2024-09-18] MEDS: IPRATROPIUM BROM 0.5 MG/2.5ML INH SOL NEB PRN (08:50)
[2024-09-18] MEDS: ALBUTEROL SULF 2.5 MG/0.5ML(0.5%) NEB SOLN NEB PRN (08:50)
[2024-09-18] MEDS: cefTRIAXone 1GM/50ML D5W 50 ML IV SCH (09:03)
[2024-09-18] MEDS: MULTIPLE VITAMIN TAB PO SCH (09:04)
[2024-09-18] MEDS: AZITHROMYCIN 500MG/ 250ML 250 ML IV SCH (10:36)
[2024-09-18 10:39] LABS: Anisocytosis Moderate; Platelet Estimate Adequate
[2024-09-18 10:40] LABS: Sickle Cells MANY
--- NOTE | 2024-09-18 16:18 | DVHPN2 ---
Subjective I am assuming the care of the patient from today onwards who was under the care of hospitalist team. Patient's denies any generalized body pain today. Reviewed: Care Plan Changes from previous H/P or p: No Changes Eyes: No Pain, No Vision change, No Conjunctivae inflammation, No Eyelid inflammation, No Other, No Redness ENT: No Ear pain, No Ear discharge, No Nose pain, No Nose discharge, No Nose congestion, No Mouth pain, No Mouth swelling, No Throat pain, No Throat swelling, No Other Cardiovascular: No Chest Pain, No Palpitations, No Orthopnea, No Paroxysmal Noc. Dyspnea, No Edema, No Lt Headedness, No Other Respiratory: Cough, Shortness of breath, Sputum Gastrointestinal: No Nausea, No Vomiting, No Abdominal Pain, No Diarrhea, No Constipation, No Melena, No Hematochezia, No Other Genitourinary: No Dysuria, No Frequency, No Incontinence, No Hematuria, No Retention, No Other Musculoskeletal: No other, No neck pain, No shoulder pain, No arm pain, No back pain, No hand pain, No leg pain, No foot pain Skin: No Rash, No Lesions, No Jaundice, No Bruising, No Other Objective Vitals Vital Signs Date Time Temp Pulse Resp B/P (MAP) Pulse Ox O2 Delivery O2 Flow Rate FiO2 09/18/24 13:52 99.8 69 18 118/53 99.8 09/18/24 11:52 93 09/18/24 10:00 Nasal Cannula* 2 28 Intake/Output Intake and Output 09/18/24 07:00 Intake Total 2810 ml Output Total 900 ml Balance 1910 ml Intake Oral 1060 ml IV Total 1750 ml Output Urine Total 900 ml # Voids 1 Exam HEENT pupils are reactive Neck is supple CV is S1-S2 regular rate and rhythm Respiratory diminished breath sounds bilateral lung bases GI positive bowel sound Extremity no edema 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 no motor deficit Medications Current Medications Medications Dose Ordered Sig/Mirza Route Start Time Stop Time Status Last Admin Dose Admin Nitroglycerin 0.4 mg Q5MINP PRN SL 09/17/24 13:45 Morphine Sulfate 2 mg Q30M PRN IV 09/17/24 13:45 Ceftriaxone Sodium 50 ml @ 100 mls/hr DAILY@0900 IV 09/18/24 09:00 09/18/24 09:03 100 MLS/HR Azithromycin 250 ml @ 125 mls/hr DAILY IV 09/18/24 10:00 09/18/24 10:36 125 MLS/HR Acetaminophen/ Hydrocodone Bitart 1 tab Q6HPRN PRN PO 09/17/24 13:45 Multivitamins 1 tab DAILY PO 09/18/24 10:00 09/18/24 09:04 1 TAB Morphine Sulfate 2 mg Q4HPRN PRN IV 09/17/24 14:45 09/18/24 12:19 2 MG Acetaminophen 500 mg Q8HP PRN PO 09/17/24 14:45 09/18/24 06:07 500 MG Ondansetron HCl 4 mg Q6HP PRN IV 09/17/24 14:45 Albuterol 2.5 mg Q4HPRN PRN NEB 09/17/24 14:45 09/18/24 08:50 2.5 MG Ipratropium [place] 0.5 mg Q4HPRN PRN NEB 09/17/24 14:45 09/18/24 08:50 0.5 MG Sodium Chloride 1,000 ml @ 120 mls/hr Q8H20M IV 09/18/24 15:00 Laboratory Results Laboratory Tests 09/17/24 11:11 09/18/24 05:14 Assessment/Plan Assessment/Plan 73-year-old male with a known history of sickle cell disease initially presented to the hospital with a generalized body pain shortness breath found to have 1. Acute hypoxic respiratory failure secondary to sickle cell crisis 2. Acute sickle cell crisis 3. Multifocal airspace disease could be secondary to sickle cell disease, empirical antibiotics for now 4. Acute anemia -transfuse 2 units of packed RBC, O2 supplementation, hydration, pain management Plan discussed with: Patient My Orders Orders - DOMENICO BOWERS MD Procedure Category Date Status Time Sodium Chloride 0.9% PHA 09/18/24 In Process 15:00 Date of Service: Sep 18, 2024 Billing Provider: DOMENICO BOWERS MD Common Visit Codes: [id number] INP/OBS CARE(HIGH) DOMENICO BOWERS MD Sep 18, 2024 16:18
[2024-09-18] MEDS: MORPHINE SULFATE INJ 2 MG/ml SYRG IV PRN (21:48)
[2024-09-19] VITALS (17 sets, daily range): BP systolic 115–130; BP diastolic 53–66; PULSE 64–97; RESP 17–19; TEMP 97.9–103; O2SAT 90–100
[2024-09-19 10:34] LABS: Hematocrit 16.4 % (41.0-53.0)
[2024-09-19 10:44] LABS: Hemoglobin 6.2 g/dL (13.5-17.5)
--- NOTE | 2024-09-19 15:37 | DVHPN2 ---
Subjective BCC diabetes controlled, patient will be given 1 unit of packed RBC. Reviewed: Care Plan Changes from previous H/P or p: No Changes Eyes: No Pain, No Vision change, No Conjunctivae inflammation, No Eyelid inflammation, No Other, No Redness ENT: No Ear pain, No Ear discharge, No Nose pain, No Nose discharge, No Nose congestion, No Mouth pain, No Mouth swelling, No Throat pain, No Throat swelling, No Other Cardiovascular: No Chest Pain, No Palpitations, No Orthopnea, No Paroxysmal Noc. Dyspnea, No Edema, No Lt Headedness, No Other Respiratory: Cough, Shortness of breath, Sputum Gastrointestinal: No Nausea, No Vomiting, No Abdominal Pain, No Diarrhea, No Constipation, No Melena, No Hematochezia, No Other Genitourinary: No Dysuria, No Frequency, No Incontinence, No Hematuria, No Retention, No Other Musculoskeletal: No other, No neck pain, No shoulder pain, No arm pain, No back pain, No hand pain, No leg pain, No foot pain Skin: No Rash, No Lesions, No Jaundice, No Bruising, No Other Objective Vitals Vital Signs Date Time Temp Pulse Resp B/P (MAP) Pulse Ox O2 Delivery O2 Flow Rate FiO2 09/19/24 15:10 98.3 76 18 125/59 98.3 09/19/24 11:54 93 09/19/24 10:38 Room Air 0.0 09/19/24 10:38 21 Intake/Output Intake and Output 09/19/24 07:00 Intake Total 2800 ml Output Total 3952 ml Balance -1152 ml Intake Oral 2200 ml IV Total 300 ml Blood Product 300 ml Output Urine Total 3952 ml Exam HEENT pupils are reactive Neck is supple CV is S1-S2 regular rate and rhythm Respiratory diminished breath sounds bilateral lung bases GI positive bowel sound Extremity no edema 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 no motor deficit Medications Current Medications Medications Dose Ordered Sig/Mirza Route Start Time Stop Time Status Last Admin Dose Admin Nitroglycerin 0.4 mg Q5MINP PRN SL 09/17/24 13:45 Morphine Sulfate 2 mg Q30M PRN IV 09/17/24 13:45 09/19/24 03:04 2 MG Ceftriaxone Sodium 50 ml @ 100 mls/hr DAILY@0900 IV 09/18/24 09:00 09/19/24 07:55 100 MLS/HR Azithromycin 250 ml @ 125 mls/hr DAILY IV 09/18/24 10:00 09/19/24 09:37 125 MLS/HR Acetaminophen/ Hydrocodone Bitart 1 tab Q6HPRN PRN PO 09/17/24 13:45 Multivitamins 1 tab DAILY PO 09/18/24 10:00 09/19/24 09:38 1 TAB Morphine Sulfate 2 mg Q4HPRN PRN IV 09/17/24 14:45 09/19/24 12:35 2 MG Acetaminophen 500 mg Q8HP PRN PO 09/17/24 14:45 09/18/24 20:24 500 MG Ondansetron HCl 4 mg Q6HP PRN IV 09/17/24 14:45 Albuterol 2.5 mg Q4HPRN PRN NEB 09/17/24 14:45 09/19/24 10:38 2.5 MG Ipratropium [place] 0.5 mg Q4HPRN PRN NEB 09/17/24 14:45 09/19/24 10:38 0.5 MG Sodium Chloride 1,000 ml @ 120 mls/hr Q8H20M IV 09/18/24 15:00 09/19/24 08:04 120 MLS/HR Laboratory Results Laboratory Tests 09/17/24 11:11 09/18/24 05:14 09/19/24 10:15 Assessment/Plan Assessment/Plan 73-year-old male with a known history of sickle cell disease initially presented to the hospital with a generalized body pain shortness breath found to have 1. Acute hypoxic respiratory failure secondary to sickle cell crisis 2. Acute sickle cell crisis 3. Multifocal airspace disease could be secondary to sickle cell disease, empirical antibiotics for now 4. Acute anemia Transfuse one more unit of packed RBC, O2 supplementation, hydration, pain management. -discharge plan. Plan discussed with: Patient Date of Service: Sep 19, 2024 Billing Provider: DOMENICO BOWERS MD Common Visit Codes: [id number] INP/OBS CARE(MOD), [id number] INP/OBS CARE(HIGH) DOMENICO BOWERS MD Sep 19, 2024 15:37
[2024-09-20] VITALS (9 sets, daily range): BP systolic 109–128; BP diastolic 52–67; PULSE 75–91; RESP 17–18; TEMP 98.7–100.6; O2SAT 91–96
[2024-09-20 05:25] LABS: Hematocrit 20.5 % (41.0-53.0); Hemoglobin 7.1 g/dL (13.5-17.5)
--- NOTE | 2024-09-20 10:02 | DVHPN2 ---
Subjective Patient reports that his generalized ill feeling has improved. Continues to have cough and some shortness of breath. Reviewed: Care Plan, H&P Changes from previous H/P or p: Changes Eyes: No Pain, No Vision change, No Conjunctivae inflammation, No Eyelid inflammation, No Other, No Redness ENT: No Ear pain, No Ear discharge, No Nose pain, No Nose discharge, No Nose congestion, No Mouth pain, No Mouth swelling, No Throat pain, No Throat swelling, No Other Cardiovascular: No Chest Pain, No Palpitations, No Orthopnea, No Paroxysmal Noc. Dyspnea, No Edema, No Lt Headedness, No Other Respiratory: Cough, Shortness of breath, Sputum Gastrointestinal: No Nausea, No Vomiting, No Abdominal Pain, No Diarrhea, No Constipation, No Melena, No Hematochezia, No Other Genitourinary: No Dysuria, No Frequency, No Incontinence, No Hematuria, No Retention, No Other Musculoskeletal: No other, No neck pain, No shoulder pain, No arm pain, No back pain, No hand pain, No leg pain, No foot pain Skin: No Rash, No Lesions, No Jaundice, No Bruising, No Other Objective Vitals Vital Signs Date Time Temp Pulse Resp B/P (MAP) Pulse Ox O2 Delivery O2 Flow Rate FiO2 09/20/24 09:00 99.7 91 17 109/56 (73) 92 99.7 09/20/24 08:35 Nasal Cannula 3.0 09/20/24 08:35 38 38 Intake/Output Intake and Output 09/20/24 07:00 Intake Total 4300 ml Output Total 3700 ml Balance 600 ml Intake Oral 2400 ml IV Total 1300 ml Blood Product 300 ml Other 300 ml Output Urine Total 3700 ml General Appearance: Alert, Oriented X3, Cooperative, No acute distress HEENT: Atraumatic, PERRLA Lungs: Normal air movement, Other (Bilateral rhonchi) Cardiovascular: Normal S1, Normal S2 Genitourinary: No Apparent Abnormalities Musculoskeletal: Normal sensory function, Normal motor function Neuro: Normal gait, Normal speech Psych/Mental Status: Mental status NL, Mood NL Medications Current Medications Medications Dose Ordered Sig/Mirza Route Start Time Stop Time Status Last Admin Dose Admin Nitroglycerin 0.4 mg Q5MINP PRN SL 09/17/24 13:45 Morphine Sulfate 2 mg Q30M PRN IV 09/17/24 13:45 09/19/24 03:04 2 MG Ceftriaxone Sodium 50 ml @ 100 mls/hr DAILY@0900 IV 09/18/24 09:00 09/20/24 08:43 100 MLS/HR Azithromycin 250 ml @ 125 mls/hr DAILY IV 09/18/24 10:00 09/19/24 09:37 125 MLS/HR Acetaminophen/ Hydrocodone Bitart 1 tab Q6HPRN PRN PO 09/17/24 13:45 Multivitamins 1 tab DAILY PO 09/18/24 10:00 09/19/24 09:38 1 TAB Morphine Sulfate 2 mg Q4HPRN PRN IV 09/17/24 14:45 09/20/24 08:44 2 MG Acetaminophen 500 mg Q8HP PRN PO 09/17/24 14:45 09/20/24 03:14 500 MG Ondansetron HCl 4 mg Q6HP PRN IV 09/17/24 14:45 Albuterol 2.5 mg Q4HPRN PRN NEB 09/17/24 14:45 09/19/24 17:21 2.5 MG Ipratropium [place] 0.5 mg Q4HPRN PRN NEB 09/17/24 14:45 09/19/24 17:21 0.5 MG Sodium Chloride 1,000 ml @ 120 mls/hr Q8H20M IV 09/18/24 15:00 09/20/24 00:29 120 MLS/HR Laboratory Results Laboratory Tests 09/17/24 11:11 09/18/24 05:14 09/20/24 04:39 Labs and/or images reviewed: Labs reviewed by me, Image(s) reviewed by me Assessment/Plan Assessment/Plan Impression: -acute hypoxic respiratory failure -leukocytosis, rule out sepsis -sickle cell crisis -sinus bradycardia -anemia Plan: -no events overnight. Continues to be febrile. O2 saturation noted to be 89% on room air. D-dimer was noted to be 3.7 -CT angiogram of the chest rule out PE. Patient agreeable. Patient denies having any contrast or shellfish allergies. -O2 supplementation to keep saturation greater than 92% -EKG -antibiotic therapy: Rocephin, azithromycin -pain management -folic acid with B vitamins, MVI -transfer to Medical/Surgical floor Total time spent with patient discussing and formulating plan of care: 35 minutes. This medical document was created using an electronic medical record system with [employer] dictation system. Although this document has been carefully reviewed, there may still be some phonetic and typographical errors. These areas are purely typographical due to imperfections of the software programs, and do not reflect any compromise in the patient's medical care. Plan discussed with: Patient, Other (RN) My Orders Orders - CHRISTIAN SHETTY NP Procedure Category Date Status Time B-Complex W/ C & PHA 09/20/24 Verified Folic Tablet 10:00 Ferrous Sulfate Tablet PHA 09/20/24 Verified 18:[address] 09/20/24 Verified Contrast 09:47 Date of Service: Sep 20, 2024 Billing Provider: CHRISTIAN SHETTY NP Common Visit Codes: [id number] INP/OBS CARE(HIGH) CHRISTIAN SHETTY NP Sep 20, 2024 10:02
[2024-09-20] MEDS ORDERED: guaiFENesin-DM 100/10mg/5ml SYR PO PRN (10:15)
[2024-09-20] MEDS: B-COMPLEX W/ C & FOLIC ACID(NEPHROVITE TAB) PO SCH (11:00)
--- NOTE | 2024-09-20 11:51 | DVH ---
CTA CHEST INDICATION: pna, rule out PE TECHNIQUE: Multidetector CTA of the chest was performed of the chest with 100 cc of intravenous contr ast. PULMONARY ANGIOGRAPHY PROTOCOL was utilized using a bolus-tracking technique centered on the daniel n pulmonary artery. Axial, coronal and sagittal multiplanar and MIP reformats were performed. Radiation Dose Information: CT Dose: CTDI volume is 6.45 mGy. Dose-length product is 265.19 mGy*cm The dose indicators for CT are the volume Computed Tomography (CT) Dose Index (CTDIvol) and the Dose Length Product (DLP), and are measured in units of mGy and mGy-cm, respectively. These indicators are not patient dose, but values generated from the CT scanner acquisition factors. The report includes radiation exposure data for exposures received during this examination. Comparison: None. Findings: Evaluation of the pulmonary arteries is limited secondary to poor contrast bolus timing. Pulmonary artery: There is no obvious pulmonary arterial filling defect to suggest pulmonary embolis m. The main pulmonary artery demonstrates normal caliber. Lungs: There is large area of consolidation involving majority of the left lower lobe. There is also opacity along the posterior left upper lobe abutting the major fissure. There is also moderate size a nicholas of opacity in the posterior right lower lobe. These findings are suggestive of multilobar pneumon ia. There is no evidence of pleural effusion or pneumothorax. The central airways are clear. Heart/Vascular Structures: Normal heart size. The thoracic aorta demonstrates normal caliber. There is no evidence of pericardial effusion. Lymph Nodes: There is a prominent right hilar lymph node measuring 1.8 cm ( axial soft tissue window image 98). There is no evidence of mediastinal or axillary lymphadenopathy. There is no obvious left hilar lymphadenopathy. Musculoskeletal: No acute osseous abnormality. Upper abdomen: Limited portions of the upper abdomen are unremarkable. IMPRESSION: 1. Limited CTA study secondary to poor contrast bolus timing. There is no obvious pulmonary arterial filling defect to suggest pulmonary embolism. 2. Airspace disease in the bilateral lower lobes and posterior left upper lobe compatible with multil obar pneumonia. 3. Nonspecific prominent right hilar lymph node. This may be reactive in nature. Consider follow-up study after appropriate treatment to reassess for lymphadenopathy. HS:Y
[2024-09-20] MEDS: IOHEXOL 350 MG/ML 100ML IJ ONE (12:16)
[2024-09-20] MEDS ORDERED: AUG875T PO (16:26)
[2024-09-20] MEDS: FERROUS SULFATE 325mg EC TAB PO SCH (18:00)
--- NOTE | 2024-09-21 08:56 | DVHDS2 ---
Discharge Summary Date of Admission Sep 17, 2024 at 13:37 Date of Discharge: Sep 20, 2024 Admitting Diagnosis Acute hypoxic respiratory failure Labs/Diagnostic Data: Laboratory Results Test 09/20/24 04:39 09/18/24 05:14 09/17/24 14:42 09/17/24 11:11 Hemoglobin 7.1 g/dL (13.5-17.5) Hematocrit 20.5 % (41.0-53.0) White Blood Count 16.3 10^3/uL (4.4-10.8) Red Blood Count 1.70 10^6/uL (4.5-5.90) Mean Corpuscular Volume 90.3 fL (80.0-100.0) Mean Corpuscular Hemoglobin 32.7 pg (28.0-32.0) Mean Corpuscular Hemoglobin Concent 36.3 g/dL (32.0-36.0) Red Cell Distribution Width 26.7 % (11.8-14.3) Platelet Count 207 10^3/uL (140-450) Mean Platelet Volume 8.3 fL (6.9-10.8) Neutrophils (%) (Auto) 77.2 % (37.0-80.0) Lymphocytes (%) (Auto) 12.3 % (10.0-50.0) Monocytes (%) (Auto) 9.2 % (0.0-12.0) Eosinophils (%) (Auto) 0.1 % (0.0-7.0) Basophils (%) (Auto) 1.2 % (0.0-2.0) Neutrophils # (Auto) 12.6 10 ^3/uL (1.6-8.6) Lymphocytes # (Auto) 2.0 10 ^3/uL (0.4-5.4) Monocytes # (Auto) 1.5 10 ^3/uL (0-1.3) Eosinophils # (Auto) 0 10 ^3/uL (0-0.8) Basophils # (Auto) 0.2 10 ^3/uL (0-0.2) Nucleated Red Blood Cells 0.6 % Platelet Estimate Adequate Anisocytosis (manual) Moderate Sickle Cells Many Influenza Type A Antigen Negative (Negative) Influenza Type B Antigen Negative (Negative) SARS-CoV-2 Antigen (Rapid) Negative (NEGATIVE) Differential Total Cells Counted 100.0 (100) Neutrophils % (Manual) 72 (37.0-80.0) Band Neutrophils % (Manual) 2 Lymphocytes % (Manual) 21 (10.0-50.0) Monocytes % (Manual) 5 (0-12) Eosinophils % (Manual) 0 (0-7) Basophils % (Manual) 0 (0.0-2.0) Metamyelocytes % (manual) 0 Myelocytes % (Manual) 0 Promyelocytes % (Manual) 0 Blast Cells % (Manual) 0 Reactive Lymphocytes 0 Reticulocyte Count (auto) 11.64 % (0.5-1.5) D-Dimer, Quantitative 3.77 mg/L FEU (0.0-0.49) Sodium Level 138 mmol/L (136-145) Potassium Level 4.3 mmol/L (3.5-5.1) Chloride Level 109 mmol/L (98-107) Carbon Dioxide Level 25 mmol/L (20-31) Anion Gap 4 (5-15) Blood Urea Nitrogen 13 mg/dL (9-23) Creatinine 0.93 mg/dL (0.700-1.30) Glomerular Filtration Rate Calc 117 mL/min (>90) BUN/Creatinine Ratio 14.0 (10.0-20.0) Serum Glucose 95 mg/dL (74-106) Calcium Level 8.9 mg/dL (8.7-10.4) B-Type Natriuretic Peptide 32.53 pg/mL (0-100) Other Laboratory Tests 09/20/24 04:39 09/18/24 05:14 09/17/24 11:11 Brief Hx & Hospital Course: History of Present Illness The patient was a 23-year-old male presenting to the emergency room with acute shortness of breath that has been worsening over the past two days. Patient also reports having generalized body aches, denies having any fevers or chills, but does report having green sputum production. The patient has a significant history of sickle cell disease, and states he has not been hospitalized for several years. During in my assessment, he was noted to be bradycardic with a heart rate in the 40s. The patient reports that he was very active with respect to physical activity, and states that he was had cardiac workup including an MRI of his heart and has not been told of any cardiac disease. Patient was found to have abnormal labs including a hemoglobin of 6.6 , white blood cell count of 13.6 and elevated reticulocyte count of 11.6. Course of hospitalization: Patient was started on IV antibiotic therapy with Rocephin and azithromycin. Patient was given a total of 3 units of PRBCs. D-dimer was noted to be elevated at 3.7, for which the patient underwent CT angiogram of the chest which was negative for pulmonary embolism. Patient was found to have multilobular pneumonia. Patient was respiratory status improved during the course of hospitalization. Patient was found yesterday to be hypoxic on room worse and oxygen saturation of 89%. The patient was decided to leave against medical advice yesterday afternoon. Physical examination General: Alert and Oriented x3. No acute distress. Well-nourished. Eyes: EOMI. Anicteric. HENT: Moist mucous membranes. Lungs: Clear to auscultation bilaterally. No accessory muscle use. Cardiovascular: Regular rate and rhythm. No murmur. No JVD. Abdomen: Soft, non-tender and non-distended. No palpable masses. Extremities: No edema. Non-tender. Skin: No rashes or lesions. Warm. Neurologic: No focal neurological deficits. CN II-XII grossly intact, but not individually tested. Psychiatric: Cooperative. Appropriate mood and affect. Total time spent with patient discussing and formulating plan of care: 35 minutes. This medical document was created using an electronic medical record system with [employer] dictation system. Although this document has been carefully reviewed, there may still be some phonetic and typographical errors. These areas are purely typographical due to imperfections of the software programs, and do not reflect any compromise in the patient's medical care. Condition at Discharge: Undetermined Final Diagnosis/Problems List Acute hypoxic respiratory failure Secondary Diagnosis: -sepsis -sickle cell crisis -sinus bradycardia -anemia -community-acquired pneumonia, probable Gram-positive/Gram-negative etiology Discharge Disposition: AMA 36 Discharge Statement: "Patient was advised to return to the ER or call 911 if any headaches, dizziness, shortness of breath, chest pain, abdominal pain, bleeding, fevers, or worsening of medical condition. Patient was counseled about treatment plan, medications, possible side effects, patientverbalized understanding. All questions were answered to the best of my ability. This discharge took greater then 30 minutes in planning, reviewing documentation, counseling the patient, and discussing with other team members." ASSESSMENT ASSESSMENT Assessment Date of Service: Sep 20, 2024 Billing Provider: CHRISTIAN SHETTY NP Common Visit Codes: [id number] DISCH DAY >30min CHRISTIAN SHETTY NP Sep 21, 2024 08:56
== END 2024-09-20 18:17 | disposition left against medical advice (07) | DRG 720 ==
LOC: EDBD 10:17 → ER 10:17 → TELE 13:37 → TELE-CENTR 13:56
PROVIDERS: ADMIT Nurse Practitioner Acute Care; ATTEND Nurse Practitioner Acute Care
PROC: 30233N1 Transfusion of Nonautologous Red Blood Cells into Peripheral Vein, Percutaneous Approach (ICD-10-PCS; principal; 2024-09-18)
DX: A41.9 Sepsis, unspecified organism (principal); J96.01 Acute respiratory failure with hypoxia; D57.01 Hb-SS disease with acute chest syndrome; J15.69 Pneumonia due to other Gram-negative bacteria; J15.9 Unspecified bacterial pneumonia; J18.9 Pneumonia, unspecified organism; J45.901 Unspecified asthma with (acute) exacerbation; D64.9 Anemia, unspecified; C44.91 Basal cell carcinoma of skin, unspecified; D72.829 Elevated white blood cell count, unspecified; Z20.822 Contact with and (suspected) exposure to COVID-19; E11.9 Type 2 diabetes mellitus without complications; Z53.29 Procedure and treatment not carried out because of patient's decision for other reasons
CPT/HCPCS: 36415; 71045; 71275; 80048; 83880; 85007; 85014; 85018; 85025; 85027; 85045; 85379; 86850; 86870; 86880; 86900; 86901; 86905; 86906; 86922; 87426; 87804; 94640; 99291; G0378; J2405

== ENCOUNTER 2024-10-31 11:51 | Emergency (ER) | payer MEDICAID ==
[~2024-10-31] VITALS: Ht 200.7 cm; Wt 79.1 kg
[~2024-10-31 11:51] MED LIST changes: +AUG875T PO
--- NOTE | 2024-10-31 12:35 | ED.PDOC ---
Musculoskeletal HPI Comments 23y F who presents to the ED for chief complaint of lower extremity pain. Pt states he has been having R lower extremity pain for the past 2 days. Pt states the pain is constant, rating the pain 8/10, with noted exacerbation of pain with movement and no relieving factors. Pt states he stepped wrong and hurt is knee. Pt otherwise denies any fall injury. Pt denies any other symptoms at this time Chief Complaint: Lower Extremity Time Seen by MD: 12:30 Primary Care Provider: donnell Maldonado Notes: Allergies Allergies: Coded Allergies: NO KNOWN ALLERGIES (Unverified , 11/03/15) Home Meds Active Scripts Amoxicillin & Pot Clavulanate (AUGMENTIN TABLET) 875 Mg Tb, 875 MG PO BID for 7 Days, #14 TAB Prov:DOMENICO BOWERS MD 09/20/24 Reported Medications Hydrocodone-Acetaminophen (Hydrocodone Bitartrate/AC 10-325 mg) 1 Tab Tab, 1 TAB PO Q4HP, TAB 04/16/19 Glutamine (Endari) 5 Gm Pow, 10 GM PO BID, POW 04/16/19 Folic Acid (Folic Acid) 1 Mg Tab, 1 MG PO DAILY for 30 Days, MG 04/15/19 Information Source: Patient Mode of Arrival: Ambulatory Brought in by: self Location: Left Extremity Location: Knee Past Medical History PAST MEDICAL HISTORY: Anemia, Asthma Surgical History: Cholecystectomy Family History Family History: Unknown Social History Smoker: Non-Smoker Alcohol: Denies ETOH Use Drugs: Marijuana Lives In: Home Constitutional: denies: chills, diaphoresis, fatigue, fever, malaise, sweats, weakness, others EENTM: denies: blurred vision, double vision, ear bleeding, ear discharge, ear drainage, ear pain, ear ringing, eye pain, eye redness, hearing loss, mouth pain, mouth swelling, nasal discharge, nose bleeding, nose congestion, nose pain, photophobia, tearing, throat pain, throat swelling, voice changes, others Respiratory: denies: cough, hemoptysis, orthopnea, SOB at rest, shortness of breath, SOB with excertion, stridor, wheezing, others Cardiovascular: denies: chest pain, dizzy spells, diaphoresis, Dyspnea on exertion, edema, irregular heart beat, left arm pain, lightheadedness, palpitations, PND, syncope, others Gastrointestinal: denies: abdomen distended, abdominal pain, blood streaked bowels, constipated, diarrhea, dysphagia, difficulty swallowing, hematemesis, melena, nausea, poor appetite, poor fluid intake, rectal bleeding, rectal pain, vomiting, others Genitourinary: denies: burning, dysuria, flank pain, frequency, hematuria, incontinence, penile discharge, penile sore, pain, testicle pain, testicle swelling, urgency, others Neurological: denies: dizziness, fainting, headache, left sided numbness, left sided weakness, numbness, paresthesia, pre-existing deficit, right sided numbness, right sided weakness, seizure, speech problems, tingling, tremors, weakness, others Musculoskeletal: reports: joint pain (L knee); denies: back pain, gout, joint swelling, muscle pain, muscle stiffness, neck pain, others Integumetry: denies: bruises, change in color, change in hair/nails, dryness, l aceration, lesions, lumps, rash, wounds, others Allergic/Immunocompromised: denies: Difficulty Healing, Frequent Infections, Hives, Itching, others Hematologic/Lymphatic: denies: anemia, blood clots, easy bleeding, easy bruising, swollen glands, others Endocrine: denies: excessive hunger, excessive sweating, excessive thirst, excessive urination, flushing, intolerance to cold, intolerance to heat, unexplained weight gain, unexplained weight loss, others Psychiatric: denies: anxiety, bipolar disorder, depression, hopeless, panic disorder, schizophrenia, sleepless, suicidal, others All Other Systems: Reviewed and Negative Physical Exam General Appearance: No Apparent Distress, Normal HEENT: Normal ENT Inspection, Pharynx Normal, TMs Normal Neck: Full Range of Motion, Non-Tender, Normal, Normal Inspection Respiratory: Chest Non-Tender, Lungs Clear, No Accessory Muscle Use, No Respiratory Distress, Normal Breath Sounds Cardiovascular: No Edema, No JVD, No Murmur, No Gallop, Normal Peripheral Pulses, Regular Rate/Rhythm Breast Exam: Deferred Gastrointestinal: No Organomegaly, Non Tender, No Pulsatile Mass, Normal Bowel Sounds, Soft Genitalia: Deferred Pelvic: Deferred Rectal: Deferred Extremities: Swelling (L knee) Musculoskeletal : Apperance: Normal Neurologic: Alert, keg raiser II-XII nml as Tested, No Motor Deficits, Normal Affect, Normal Mood, No Sensory Deficits Cerebellar Function: Normal Reflexes: Normal Skin: Dry, Normal Color, Warm Lymphatic: No Adenopathy Was a procedure done? Was a procedure done?: Yes Sedation Sedation?: No Informed consent obtained: Yes Other Procedure Procedure right knee immobilizer placed with good position, neurovascularly intact Differential Diagnosis EXT Differential Diagnosis: Fracture, Sprain, Dislocation, DJD, Contusion, Strain, Neurovascular injury, Arthritis, Bursitis Other Differential Diagnosis muscle spasm X-Ray, Labs, Meds, VS Vital Signs Date Time Temp Pulse Resp B/P (MAP) Pulse Ox O2 Delivery O2 Flow Rate FiO2 10/31/24 12:02 97.5 60 18 140/44 (76) 96 Time of 1ST Reevaluation: 13:00 Reevaluation 1ST: Unchanged Time of 2ND Reevaluation: 14:37 Reevaluation 2ND: Improved Patient Education/Counseling: Diagnosis, Treatment, Prognosis, Need For Follow Up Family Education/Counseling: No Family Present Additional Information - I reviewed the following notes from patient's past medical encounters: - The following tests were ordered, and results were reviewed by me: (Labs, X- Ray, EKG): R knee x-ray - Additional information was gathered from interviewing the following independent Historian: (Family, Other Providers, EMT): none - I reviewed and agreed with the following test results read by other provider: (X-ray, CT, US): radiologist - I discussed treatments and results with medical personnel and: (consultants, family): none Departure 1 Departure Time of Disposition: 14:38 Impression: Primary Impression: Left knee sprain Qualified Codes: S83.92XA - Sprain of unspecified site of left knee, initial encounter Disposition: HOME / SELF CARE / HOMELESS Condition: Good Additional Instructions: elevate, cold compress, rest for 2 days. follow up with your doctor in 3 days e-Prescriptions Hydrocodone-Acetaminophen (Hydrocodone Bitartrate/AC 5-325 mg) 1 Tab Tab 1 TAB PO BIDP PRN for 3 Days, #6 TAB Prov: GAEL MICHELLE MD 10/31/24 Discharged With: Self Critical Care Note Critical Care Time?: No Stability Stability form required: No Heart Score Heart Score: Heart Score Response (Comments) Value History N/A 0 EKG N/A 0 Age N/A 0 Risk Factors N/A 0 Troponin N/A 0 Total 0 I personally scribed for GAEL MICHELLE MD ([facility] on 10/31/24 at 12:35. Electronically submitted by Herrera Borrego ([facility] [place] GAEL MICHELLE MD Oct 31, 2024 12:35
--- NOTE | 2024-10-31 13:38 | DVH ---
XY R KNEE 3V XRAY, INDICATION: injury TECHNICAL DATA: Frontal , oblique and lateral views were obtained of the right knee. COMPARISON: None FINDINGS: No fracture is identified. Medial, lateral and patellofemoral compartment joint spaces are maintained . Alignment is anatomic. Soft tissues are within normal limits. Small knee joint effusion. IMPRESSION: No acute fracture or dislocation of the right knee. Small knee joint effusion.
[2024-10-31] MEDS ORDERED: HYDR-4902 PO (14:39)
[2024-10-31 15:14] VITALS: BP 140/62; PULSE 64; RESP 17; TEMP 98.2; O2SAT 96
== END 2024-10-31 15:16 | disposition home or self-care (01) ==
LOC: ER 12:06
DX: S83.91XA Sprain of unspecified site of right knee, initial encounter (principal); J45.909 Unspecified asthma, uncomplicated; F12.10 Cannabis abuse, uncomplicated; Z90.49 Acquired absence of other specified parts of digestive tract; W22.8XXA Striking against or struck by other objects, initial encounter; Y93.89 Activity, other specified; Y92.89 Other specified places as the place of occurrence of the external cause; Y99.8 Other external cause status
CPT/HCPCS: 29505; 73562